=== PATIENT | female | born 1975 | race Caucasian/White ===

== ENCOUNTER 2022-01-09 13:47 | Emergency (ER) | payer MEDICAID, SELFPAY ==
[2022-01-09 15:10] VITALS: BP 102/72; PULSE 94; RESP 16; TEMP 36.9; O2SAT 98
--- NOTE | 2022-01-09 17:10 | PC.NURSE ---
24g IV that was placed by EMS noted to be dislodged once pt in ER room 1. IV was dc'd with catheter intact. Approx 500cc NS was infused prior to IV coming out
[2022-01-09 17:21] LABS: Basophils # 0.1 10^3/uL (0.0-0.1); Basophils % 1.4 %; Eosinophils # 0.1 10^3/uL (0.0-0.8); Eosinophils % 2.9 %; Hematocrit 29.4 % (37.0-47.0); Hemoglobin 7.7 g/dL (11.5-15.3); Lymphocytes # 1.3 10^3/uL (0.8-4.8); Lymphocytes % 26.8 %; Mean Corpuscular HGB Conc 26.2 g/dL (30.0-36.0); Mean Corpuscular Hemoglobin 24.5 pg (28.0-34.0); Mean Corpuscular Volume 93.6 fl (81-99); Mean Platelet Volume 11.3 fL (7.4-10.4); Monocytes # 0.3 10^3/uL (0.2-0.9); Monocytes % 6.1 %; Neutrophils # 3.05 10^3/uL (1.8-7.7); Neutrophils % 62.4 %; Nucleated Red Blood Cells % 0 %; Platelet Count 156 10^3/cmm (130-400); Red Blood Count 3.14 10^6/uL (4.1-5.3); Red Cell Distribution Width 21.8 % (12.1-15.1); White Blood Count 4.9 10^3/uL (4.0-10.0)
[2022-01-09] MEDS: sodium chloride 0.9% 1,000 ML 999 ML IV (17:39)
--- NOTE | 2022-01-09 17:47 | W.ED.GENADLT ---
HPI - General Adult General: Chief complaint: Syncope Stated complaint: heat exhaustion Time Seen by Provider: 01/09/22 16:57 Source: patient Mode of arrival: ambulatory Limitations: no limitations History of Present Illness: Patient is a 46-year-old female who presents to ED today stating she is exhausted from being out in the heat over the past 3 to 4 days. She has reportedly homeless. She is complaining of feeling dehydrated and weak. After talking to patient further she complains of some upper abdominal pains. Patient states seems to be chronic for her. She states she is a frequent alcohol drinker stating if you had been through what I have you would be to . Patient really is not able to tell me much in regards to her past medical history. She does states she had some type of history of a GI bleed apparently had an endoscopy/colonoscopy in [place] a month or so ago that was reportedly normal. She reports they don't know where I'm bleeding from . She states she is supposed to be on pantoprazole but has not been taking this. She also has a history of COPD but again has not been taking these medications either. She states she was residing in a homeless skilled nursing (not any longer) and all of her medications are there. Onset (ago): day(s) Associated symptoms: Reports nausea; Deny chest pain, dyspnea, headache(s), rash, palpitations, syncope or vomiting Review of Systems Const: Reports: fatigue; Denies: fever(s), chills or body aches Eyes: Denies: change in vision or blurry vision ENMT: Denies: throat pain, odynophagia, nasal discharge or nasal congestion Card: Denies: chest pain, palpitations, irregular heart rhythm, edema, swelling of feet/ankles, syncope, pre-syncope, dyspnea on exertion, orthopnea, leg pain with exertion or acrocyanosis Resp: Denies: dyspnea, productive cough, non-productive cough, wheezing, hemoptysis or chest congestion GI: Reports: abdominal pain and nausea; Denies: vomiting, diarrhea or change in bowel habits : Denies: flank pain, dysuria or hematuria Musc: Denies: neck pain, back pain, extremity pain or joint pain Skin/Breast: Denies: rash Neuro: Denies: headache(s), numbness in extremities, weakness in extremities, sensory changes or dizziness Physical Exam Const: COMMON NORMALS: no acute distress, patient oriented x3, no limitations and alert GENERAL APPEARANCE: cooperative and disheveled ORIENTATION/CONSCIOUSNESS: Yes awake, Yes oriented to person, Yes oriented to place and Yes oriented to time HENMT: COMMON NORMALS: normocephalic and atraumatic HEAD & SCALP: normal to inspection, normocephalic and atraumatic Eye: GENERAL EYE: appearance normal, both eyes and all related structures Neck/C-Spine: COMMON NORMALS: full ROM, no lymphadenopathy and no meningeal signs Resp: COMMON NORMALS: normal respiratory effort and clear to auscultation bilaterally AUSCULTATION: clear to auscultation bilaterally Cardio: COMMON NORMALS: regular rate and regular rhythm RATE: regular rate RHYTHM: regular rhythm GI: COMMON NORMALS: Normal to inspection, nondistended, normoactive bowel sounds present, Soft to palpation, No hepatosplenomegaly present and no masses INSPECTION: Yes normal to inspection AUSCULTATION: Yes normoactive bowel sounds PALPATION: Yes Soft to palpation, Yes Tenderness to palpation present (GI) (upper abdominal pain) and Yes No hepatosplenomegaly present RECTAL EXAM: visual inspection normal, No External hemorrhoid(s) present, No Internal hemorrhoid(s) present and heme negative stool : COMMON NORMALS: Yes no CVA tenderness BLADDER/KIDNEY EXAM: Yes no CVA tenderness Back/Pelvis: COMMON NORMALS: no CVA tenderness, thoracic and lumbar spine normal to inspection, no thoracic nor lumbar tenderness and thoraco-lumbar ROM normal Extremity: COMMON NORMALS: normal to inspection GENERAL: Yes normal exam except as noted Neuro: EMMA COMA SCALE: document GCS findings Emma coma scale eye opening: Spontaneous Emma coma scale verbal response: Orientated [place] coma scale motor response: [place]bey commands Emma coma scale total score: 15 COMMON NORMALS: patient oriented x3, moves all extremities, no focal motor deficits and no sensory deficits noted SENSORIUM/ORIENTATION: Yes alert, Yes oriented to person, Yes oriented to place and Yes oriented to time MENINGEAL SIGNS: Yes no meningeal signs Skin: COMMON NORMALS: no rashes or lesions noted GENERAL SKIN EXAM: no rashes or lesions noted Procedures Stool Hemoccult Procedural Steps Taken: stool placed in appropriate test area, developer placed on stool and control areas and controls appropriately positive and negative Hemoccult result: negative Course Vital Signs: Vital signs: Vital Signs Temperature 98.5 F 01/09/22 15:10 Pulse Rate 94 01/09/22 15:10 Respiratory Rate 16 01/09/22 15:10 Blood Pressure 102/72 01/09/22 15:10 Pulse Oximetry 98 01/09/22 15:10 [facility] - General Adult Medical Decision Making Patient is a 46-year-old female who presents to the ED today essentially complaining of exhaustion related to being outside in the heat. Her vital signs are stable upon arrival. Lab work shows microcytic anemia with a hemoglobin of 7.7. Patient does report a history of a GI bleed and was seen in [place] for this. She reported her endoscopy and colonoscopy were normal (report from [place] states her colonoscopy showed diverticulosis and internal hemorrhoids). Was a significant delay in patient's care as records from [place] took an extensive amount of time to be faxed. Patient had a hemoglobin of 7.2 during that visit on 12/11. She did not receive a blood transfusion. Due to rising hemoglobin and a negative Hemoccult I do not think we need to do anything further apart from putting her back on her Protonix and Carafate and having her follow-up with GI they set her up with. She had a mildly low potassium at 3.2. She was given oral supplementation for this. Her mag was normal. CK was slightly elevated at 318. She was given fluids by EMS. Her IV blew here and she refused to have it replaced therefore no further fluids could be given. UA is suspicious for UTI with 2+ leuks, 40-50 WBCs and 3+ bacteria although this is a contaminated specimen. Again plan for patient at this time will be for her to get back on her Protonix and Carafate, be treated for her UTI, and continue current plan to follow-up with GI. She was encouraged to discontinue alcohol use. Return to ED precuations given. Lab Data : 01/09/22 16:44 01/09/22 16:44 Laboratory Results WBC 4.9 10^3/uL (4.0-10.0) 01/09/22 16:44 RBC 3.14 10^6/uL (4.1-5.3) L 01/09/22 16:44 Hgb 7.7 g/dL (11.5-15.3) L 01/09/22 16:44 Hct 29.4 % (37.0-47.0) L 01/09/22 16:44 MCV 93.6 fl (81-99) 01/09/22 16:44 MCH 24.5 pg (28.0-34.0) L 01/09/22 16:44 MCHC 26.2 g/dL (30.0-36.0) L 01/09/22 16:44 RDW 21.8 % (12.1-15.1) H 01/09/22 16:44 Plt Count 156 10^3/cmm (130-400) 01/09/22 16:44 MPV 11.3 fL (7.4-10.4) H 01/09/22 16:44 Neut % (Auto) 62.4 % 01/09/22 16:44 Lymph % (Auto) 26.8 % 01/09/22 16:44 Leslie % (Auto) 6.1 % 01/09/22 16:44 Eos % (Auto) 2.9 % 01/09/22 16:44 Baso % (Auto) 1.4 % 01/09/22 16:44 Neut # (Auto) 3.05 10^3/uL (1.8-7.7) 01/09/22 16:44 Lymph # (Auto) 1.3 10^3/uL (0.8-4.8) 01/09/22 16:44 Leslie # (Auto) 0.3 10^3/uL (0.2-0.9) 01/09/22 16:44 Eos # (Auto) 0.1 10^3/uL (0.0-0.8) 01/09/22 16:44 Baso # (Auto) 0.1 10^3/uL (0.0-0.1) 01/09/22 16:44 Nucleated RBC % (auto) 0 % 01/09/22 16:44 Nucleated RBCs # 0.0 /100WBC 01/09/22 16:44 Sodium 143 mmol/L (136-145) 01/09/22 16:44 Potassium 3.2 mmol/L (3.5-5.1) L 01/09/22 16:44 Chloride 108 mmol/L (98-107) H 01/09/22 16:44 Carbon Dioxide 18 mmol/L (22-29) L 01/09/22 16:44 Anion Gap 20.2 (5-19) H 01/09/22 16:44 BUN 9 mg/dL (6-20) 01/09/22 16:44 Creatinine 0.7 mg/dL (0.5-0.9) 01/09/22 16:44 GFR Calculation 90.5 mL/min (90-130) 01/09/22 16:44 Glucose 96 mg/dL (65-115) 01/09/22 16:44 Calculated Osmolality 295 mOsm/kg (285-295) 01/09/22 16:44 Calcium 8.4 mg/dL (8.5-10.5) L 01/09/22 16:44 Magnesium 1.9 mg/dL (1.7-2.3) 01/09/22 17:05 Total Bilirubin 0.5 mg/dL (0.15-1.2) 01/09/22 16:44 AST 20 U/L (0-32) 01/09/22 16:44 ALT 14 U/L (0-33) 01/09/22 16:44 Alkaline Phosphatase 107 IU/L (35-105) H 01/09/22 16:44 Creatine Kinase 318 U/L (26-192) H 01/09/22 16:44 CK-MB (CK-2) 7.5 ng/mL (0-5.34) H 01/09/22 16:44 CK-MB (CK-2) Rel Index 2.3 % (0.0-10.4) 01/09/22 16:44 Total Protein 7.0 g/dL (6.6-8.7) 01/09/22 16:44 Albumin 4.1 g/dL (3.5-5.2) 01/09/22 16:44 Globulin 2.9 g/dL (1.3-4.6) 01/09/22 16:44 HCG, Qual Negative (Negative) 01/09/22 16:44 Urine Color Yellow (Yellow) 01/09/22 19:41 Urine Appearance Hazy (CLEAR) A 01/09/22 19:41 Urine pH 6 (5-7) 01/09/22 19:41 Ur Specific [place] 1.025 (1.005-1.030) 01/09/22 19:41 Urine Protein 1+ (Negative) H 01/09/22 19:41 Urine Glucose (UA) Norm (Normal) 01/09/22 19:41 Urine Ketones Negative (Negative) 01/09/22 19:41 Urine Blood 2+ (Negative) H 01/09/22 19:41 Urine Nitrate Negative (Negative) 01/09/22 19:41 Urine Bilirubin Neg (Negative) 01/09/22 19:41 Urine Urobilinogen 4 mg/dL (Negative) H 01/09/22 19:41 Ur Leukocyte Esterase 2+ (Negative) H 01/09/22 19:41 Urine RBC 10-15 /hpf (0-2) H 01/09/22 19:41 Urine WBC 40-55 /hpf (0-5) H 01/09/22 19:41 Ur Squamous Epith Cells 15-25 /hpf (0-5) H 01/09/22 19:41 Calcium Oxalate Crystal 0-4 /hpf H 01/09/22 19:41 Amorphous Sediment Not Reportable 01/09/22 19:41 Urine Bacteria 3+ /hpf (NONE) H 01/09/22 19:41 Urine Mucus Trace /hpf 01/09/22 19:41 Discharge Plan Discharge Patient Disposition: Home Clinical Impression: History of GI bleed, Anemia, Hypokalemia, UTI (urinary tract infection) Condition: Stable Prescriptions: New Macrobid 100 mg capsule 100 mg PO BID 7 Days Qty: 14 0RF Rx Instructions: must administer with a meal/food Continued pantoprazole 40 mg tablet,delayed release (DR/EC) 40 mg PO BID Qty: 60 0RF Changed sucralfate 1 gram tablet 1 g PO TID Qty: 90 0RF No Action trazodone 50 mg tablet 50 mg PO BEDTIME 0RF acetaminophen-codeine 300-30 mg tablet 1 tab PO Q6H PRN (Reason: Pain) 0RF Rx Instructions: rx filled 12/12/21 3d/s ondansetron 8 mg tablet,disintegrating 4 mg PO Q8H PRN (Reason: Nausea And Vomiting) 0RF propranolol 10 mg tablet 10 mg PO DAILY 0RF Tri-Sprintec (28) 0.18/0.215/0.25 mg-35 mcg (28) tablet 1 tab PO DAILY 0RF Rx Instructions: ext med history shows last filled 11/25/21 28d/s montelukast 10 mg tablet 10 mg PO BEDTIME 0RF ProAir HFA 90 mcg/actuation HFA aerosol inhaler 1 - 2 puff INHALATION Q4H PRN (Reason: Shortness Of Breath) 0RF loratadine 10 mg tablet 10 mg PO DAILY 0RF escitalopram oxalate 10 mg tablet 10 mg PO DAILY 0RF Atrovent HFA 17 mcg/actuation HFA aerosol inhaler 1 puff INHALATION TID 0RF Twirla 120-30 mcg/24 hr patch weekly 1 patch topical Q7D 0RF Rx Instructions: ext med history shows last filled 11/26/21 21d/s Discharge Orders: Discharge ED (Routine); Ordered 01/09/22 Ordered By: Navya Waters Coding Level of Care Code ED Customs Appraiser for Chg Fwd Exam Comprehensive
[2022-01-09 17:55] LABS: HCG, Serum Qual Negative (Negative)
[2022-01-09 18:03] LABS: Alanine Aminotransferase 14 U/L (0-33); Albumin Level 4.1 g/dL (3.5-5.2); Alkaline Phosphatase 107 IU/L (35-105); Anion Gap 20.2 (5-19); Aspartate Amino Transferase 20 U/L (0-32); Blood Urea Nitrogen 9 mg/dL (6-20); Calcium 8.4 mg/dL (8.5-10.5); Carbon Dioxide 18 mmol/L (22-29); Chloride 108 mmol/L (98-107); Creatine Phosphokinase 318 U/L (26-192); Globulin 2.9 g/dL (1.3-4.6); Glomerular Filtration Rate 90.5 mL/min (90-130); Glucose 96 mg/dL (65-115); Osmolality Calculated 295 mOsm/kg (285-295); Potassium 3.2 mmol/L (3.5-5.1); Sodium 143 mmol/L (136-145); Total Bilirubin 0.5 mg/dL (0.15-1.2)
--- NOTE | 2022-01-09 18:06 | PC.NURSE ---
IV infiltrated, small swollen area noted at site. IV dc'd with catheter intact, pt received approx 200cc NS. Provided informed. Pt refusing another IV stick at this time, requesting medication IM.
[2022-01-09 18:26] LABS: Magnesium 1.9 mg/dL (1.7-2.3)
[2022-01-09] MEDS: ondansetron 2 mg/ML SDV 2 mL 4 MG IM (18:26)
[2022-01-09] MEDS: morphine 4 mg/mL SDV 1 mL IM (18:26)
[2022-01-09] MEDS: lidocaine 2% viscous 15 ML, aluminum-mag hydrox-simethicon 30 ML, sucralfate oral liq 1 GM PO (19:20)
[2022-01-09] MEDS: potassium chloride ER 20 mEq Tablet 40 MEQ PO (19:20)
[2022-01-09] MEDS: pantoprazole DR 40 mg Tablet PO (19:20)
[2022-01-09 19:54] LABS: CKMB 7.5 ng/mL (0-5.34); CKMB Relative Index 2.3 % (0.0-10.4)
[2022-01-09 20:19] LABS: Protein Urine 1+ (Negative); Specific Gravity, Urine 1.025 (1.005-1.030); Urine Appearance Hazy (CLEAR); Urine Color Yellow (Yellow); pH Urine 6 (5-7)
[2022-01-09 20:20] LABS: Add Urine Microscopic? YES; Bilirubin Urine Neg (Negative); Blood Urine 2+ (Negative); Glucose Urine UA Norm (Normal); Ketones Urine Negative (Negative); Leukocyte Esterase Urine 2+ (Negative); Nitrate Urine Negative (Negative); Urobilinogen Urine 4 mg/dL (Negative)
--- NOTE | 2022-01-09 20:27 | PC.PHAR ---
MEDICATIONS ENTERED ARE WHAT EXT MED HISTORY SHOWS HAS BEEN FILLED-NOTES ARE MADE IN THE PHARMACY COMMENTS WITH LAST FILL DATES AND D/S
[2022-01-09 20:36] LABS: Add Urine Culture? No; Bacteria Urine 3+ /hpf; Calcium Oxalate Crystals Urine 0-4 /hpf; Mucus Urine TRACE /hpf; Squamous Epithelial Cell Urine 15-25 /hpf (0-5); WBC Urine 40-55 /hpf (0-5)
== END 2022-01-09 23:07 | disposition home or self-care (01) ==
PROVIDERS: Emergency Provider Physician Assistant
DX: D64.9 Anemia, unspecified (principal); E87.6 Hypokalemia; N39.0 Urinary tract infection, site not specified
CPT/HCPCS: 80053; 81001; 82272; 82550; 82553; 83735; 84703; 85025; 96360; 96372; 99284; J2270; J2405; J7030